=== PATIENT | male | born 1955 | race Caucasian/White ===

== ENCOUNTER 2022-02-02 20:39 | Inpatient (IN) | payer OTHER ==
[~2022-02-02] VITALS: Ht 160 cm; Wt 76.9 kg
[2022-02-02 22:03] LABS: HEMATOCRIT. 39.7 % (42.0-52.0); HEMOGLOBIN. 13.2 g/dL (14.0-18.0); MEAN CORPUSCULAR HEMOGLOBIN 28.3 pg (28.0-32.0); MEAN CORPUSCULAR VOLUME 84.8 fL (80.0-94.0); PLATELET 324 x1000/uL (130-400); RED BLOOD CELL COUNT 4.68 mill/uL (4.7-6.1); RED CELL DISTRIBUTION WIDTH 13.6 % (11.6-14.6)
[2022-02-02 22:09] LABS: CHLORIDE 108 mEq/L (98-107)
[2022-02-02 23:17] LABS: PLATELET ESTIMATE NORMAL
[2022-02-03] MEDS ORDERED: CEFTRIAXONE 1 G PREMIX 50 ML IV NR (02:15)
[2022-02-03] MEDS ORDERED: AZITHROMYCIN 500MG/250ML 250 ML IV NR (02:15)
[2022-02-03] MEDS ORDERED: HYDROCODONE/ACETAMINOPHEN 5/325MG TABLET PO PRN (05:45)
[2022-02-03] MEDS ORDERED: CEFTRIAXONE 1 G PREMIX 50 ML IV SCH (09:45)
[2022-02-03] MEDS ORDERED: NALOXONE HCL 0.4MG/ML VIAL IV PRN (10:00)
[2022-02-03] MEDS ORDERED: IPRATROPIUM/ALBUTEROL 0.5-3(2.5)MG/3ML NEB HHN PRN (10:15)
[2022-02-03] MEDS: ENOXAPARIN 40MG/0.4ML SYR SUBCUT SCH (12:05)
[2022-02-03] MEDS: AMLODIPINE 10MG TABLET PO SCH (12:06)
[2022-02-03] MEDS: ACETAMINOPHEN 325MG TABLET PO PRN ×2 (12:08→21:08)
[2022-02-03] MEDS ORDERED: albuterol (15:25)
[2022-02-03] MEDS ORDERED: OMEP40CA20 PO (15:25)
[2022-02-03] MEDS ORDERED: ERGO1250 (15:25)
[2022-02-03] MEDS ORDERED: AMLO10TA80 PO (15:25)
[2022-02-03] MEDS ORDERED: D-ME473S50 (15:25)
[2022-02-03] MEDS: AZITHROMYCIN 500 MG in DEXT 5% WATER 250 ML IV SCH (15:45)
[2022-02-03] MEDS ORDERED: BENZONATATE 100MG CAPSULE PO PRN (16:45)
[2022-02-03] MEDS: MONTELUKAST SODIUM 10MG TABLET PO SCH (18:04)
[2022-02-03] MEDS: CEFTRIAXONE 1,000 MG in DEXTROSE 5% WATER 50 ML IV SCH (18:05)
[2022-02-03] MEDS: GUAIFENESIN 200MG/10ML SUGAR FREE UDC PO PRN (18:05)
[2022-02-03 20:00] VITALS: BP 150/74
[2022-02-03] MEDS ORDERED: BUDESONIDE 0.5MG/2ML NEB HHN SCH (21:00)
[2022-02-04] VITALS: BP 149/72
[2022-02-04] MEDS: IPRATROPIUM/ALBUTEROL 0.5-3(2.5)MG/3ML NEB HHN SCH ×3 (02:19→13:28)
[2022-02-04 04:00] VITALS: BP 134/79
[2022-02-04 08:00] VITALS: BP 144/74
[2022-02-04] MEDS: ENOXAPARIN 40MG/0.4ML SYR SUBCUT SCH (08:39)
[2022-02-04] MEDS: AMLODIPINE 10MG TABLET PO SCH (08:39)
[2022-02-04] MEDS: AZITHROMYCIN 500 MG in DEXT 5% WATER 250 ML IV SCH (11:59)
[2022-02-04] MEDS: GUAIFENESIN 200MG/10ML SUGAR FREE UDC PO PRN (11:59)
[2022-02-04 12:00] VITALS: BP 138/65
[2022-02-04] MEDS ORDERED: LEVO500T90 MT (12:15)
[2022-02-04] MEDS ORDERED: IPRA3AMP9 NEB (13:34)
[2022-02-04] MEDS ORDERED: TUSSL MT (13:34)
[2022-02-04] MEDS: CEFTRIAXONE 1,000 MG in DEXTROSE 5% WATER 50 ML IV SCH (15:00)
[2022-02-04 16:00] VITALS: BP 124/58
[2022-02-04 16:45] VITALS: BP 124/58
[2022-02-04] MEDS: MONTELUKAST SODIUM 10MG TABLET PO SCH (17:02)
== END 2022-02-04 17:45 | disposition home or self-care (01) | DRG 193 ==
LOC: ER 20:39 → 8WST 02-03 04:12 → ENRESERV 02-03 07:15
PROVIDERS: ADMIT Internal Medicine; ATTEND Internal Medicine
DX: J18.9 Pneumonia, unspecified organism (principal); J96.20 Acute and chronic respiratory failure, unspecified whether with hypoxia or hypercapnia; E87.8 Other disorders of electrolyte and fluid balance, not elsewhere classified; I10 Essential (primary) hypertension; D72.10 Eosinophilia, unspecified; K21.9 Gastro-esophageal reflux disease without esophagitis; J45.909 Unspecified asthma, uncomplicated; Z20.822 Contact with and (suspected) exposure to COVID-19; Z86.16 Personal history of COVID-19; Z99.81 Dependence on supplemental oxygen
CPT/HCPCS: 36415; 71045; 80053; 83605; 83880; 84484; 85025; 85379; 87426; 87804; 93005; 94640; 94664; 99285; C9803; J0456; J0696; J1650; J7060; J7626